=== PATIENT | female | born 1960 | race Caucasian/White ===

== ENCOUNTER 2017-07-24 07:49 | Outpatient (CLI) | payer OTHER | END 2017-07-24 18:33 | disposition home or self-care (01) | LOC: SMA 07:49 | DX: Z12.31 Encounter for screening mammogram for malignant neoplasm of breast (principal) | CPT/HCPCS: G0202 ==

== ENCOUNTER 2017-08-14 08:47 | Outpatient (CLI) | payer OTHER | END 2017-08-14 19:32 | disposition home or self-care (01) | LOC: SMA 08:47 | DX: R92.8 Other abnormal and inconclusive findings on diagnostic imaging of breast (principal) | CPT/HCPCS: 76642; G0204 ==

== ENCOUNTER 2018-08-06 08:18 | Outpatient (CLI) | payer OTHER | END 2018-08-06 19:28 | disposition home or self-care (01) | LOC: SMA 08:18 | DX: Z12.31 Encounter for screening mammogram for malignant neoplasm of breast (principal) | CPT/HCPCS: 77067 ==

== ENCOUNTER 2019-08-22 07:53 | Outpatient (CLI) | payer OTHER | END 2019-08-22 08:30 | disposition still patient (30) | LOC: SMA 07:53 | DX: Z12.31 Encounter for screening mammogram for malignant neoplasm of breast (principal) | CPT/HCPCS: 77067 ==

== ENCOUNTER 2020-08-24 08:00 | Outpatient (CLI) | payer OTHER | END 2020-08-24 20:05 | disposition home or self-care (01) | LOC: SMA 08:00 | DX: Z12.31 Encounter for screening mammogram for malignant neoplasm of breast (principal) | CPT/HCPCS: 77067 ==